=== PATIENT | female | born 1945 | race Caucasian/White ===

== ENCOUNTER 2018-07-02 13:14 | Outpatient (CLI) | payer MEDICARE, OTHER, SELFPAY ==
[2018-07-02 13:49] LABS: HCT 33.1 % (36.0-46.0); HGB 10.8 g/dL (12.0-15.5); Mean Corp. HGB Concentration 32.6 g/dL (32.0-36.0); Mean Corpuscular Hemoglobin 30.4 pg (27.0-33.0); Mean Corpuscular Volume 93.2 fL (80-95); Mean Platelet Volume 8.1 fL (8.0-11.0); Platelet Count 369 x1000/uL (130-400); RBC 3.55 m/cumm (4.00-5.20); RBC Distribution Width 12.8 % (11.7-14.6); White Blood Cell Count 5.67 k/cumm (4.4-10.8)
[2018-07-02 17:03] LABS: ALT 32 U/L (12-78); AST 30 U/L (15-37); Albumin 3.8 g/dL (3.4-5.0); Alkaline Phosphatase 60 U/L (46-116); Anion Gap 12.5 mmol/L (3-11); BUN 36 mg/dL (7-18); Bilirubin, Total 0.2 mg/dL (0.2-1.0); C-Reactive Protein 0.24 mg/dL (0.0-0.3); CO2 24.5 mmol/L (21.0-32.0); CREATININE 1.46 mg/dL (0.55-1.02); Chloride 99 mmol/L (98-107); Estimated GFR 35.22 (mL/min/1.73m2); Glucose 101 mg/dL (70-100); Potassium 4.7 mmol/L (3.5-5.1); Sodium 136 mmol/L (136-145); TSH (W/Ref FT4) 0.94 uIU/mL (0.358-3.74); Total Protein 7.2 g/dL (6.4-8.2)
[2018-07-02 17:23] LABS: HDL Cholesterol 108 mg/dL (40-60); LDL CHOLESTEROL 76 mg/dL (<100); Triglyceride 74 mg/dL (30-150)
[2018-07-02 17:52] LABS: Cholesterol 212 mg/dL (50-200)
== END 2018-07-02 13:34 ==
PROVIDERS: PCP Family Medicine; Visit Provider Family Medicine
DX: R53.83 Other fatigue (principal); R03.0 Elevated blood-pressure reading, without diagnosis of hypertension; R79.89 Other specified abnormal findings of blood chemistry; M19.90 Unspecified osteoarthritis, unspecified site
CPT/HCPCS: 36415; 80053; 80061; 83721; 85027; 84443; 86140

== ENCOUNTER 2018-07-25 16:14 | Outpatient (CLI) | payer MEDICARE, OTHER, SELFPAY ==
[2018-07-25 16:53] LABS: Reticulocyte 1.3 % (0.5-2.4)
[2018-07-25 17:38] LABS: Iron 45 ug/dL (50-175); Total Iron Binding Capacity 337 ug/dL (250-450); Transferrin Sat 13 % (15-50)
[2018-07-25 18:09] LABS: Vitamin B12 620 pg/mL (193-986)
== END 2018-07-25 16:34 ==
PROVIDERS: PCP Family Medicine; Visit Provider Family Medicine
DX: D64.9 Anemia, unspecified (principal); R03.0 Elevated blood-pressure reading, without diagnosis of hypertension
CPT/HCPCS: 36415; 82607; 83540; 83550; 85045

== ENCOUNTER 2018-10-29 11:53 | Outpatient (REF) | payer MEDICARE, OTHER, SELFPAY ==
[2018-10-29 13:02] LABS: HCT 32.8 % (36.0-46.0); HGB 10.7 g/dL (12.0-15.5); Mean Corp. HGB Concentration 32.6 g/dL (32.0-36.0); Mean Corpuscular Hemoglobin 30.2 pg (27.0-33.0); Mean Corpuscular Volume 92.7 fL (80-95); Platelet Count 443 x1000/uL (130-400); RBC 3.54 m/cumm (4.00-5.20); RBC Distribution Width 12.4 % (11.7-14.6)
[2018-10-29 13:07] LABS: BUN 30 mg/dL (7-18); CREATININE 1.41 mg/dL (0.55-1.02); Calcium 9.1 mg/dL (8.5-10.1); Chloride 100 mmol/L (98-107); Estimated GFR 36.56 (mL/min/1.73m2); Glucose 100 mg/dL (70-100); Potassium 4.5 mmol/L (3.5-5.1); Sodium 137 mmol/L (136-145)
== END 2018-10-29 12:13 ==
LOC: NCHCN 11:53
PROVIDERS: PCP Family Medicine; Visit Provider Family Medicine
DX: D64.9 Anemia, unspecified (principal)
CPT/HCPCS: 80048; 85027

== ENCOUNTER 2018-12-08 10:10 | Outpatient (CLI) | payer MEDICARE, OTHER, SELFPAY ==
[2018-12-08 10:50] LABS: Abs Immature Grans 0.01 k/cumm (0.0-0.09); Absolute Basophil Count 0.02 k/cumm (0.0-0.2); Absolute Eosinophil Count 0.09 k/cumm (0.0-0.7); Absolute Monocyte Count 0.76 k/cumm (0.11-0.7); Absolute Neutrophil Count 3.81 k/cumm (1.2-6.7); Basophils % 0.3; Eosinophils % 1.6; HCT 35.3 % (36.0-46.0); HGB 11.8 g/dL (12.0-15.5); Immature Grans % 0.2; Mean Corp. HGB Concentration 33.4 g/dL (32.0-36.0); Mean Corpuscular Hemoglobin 30.3 pg (27.0-33.0); Mean Corpuscular Volume 90.7 fL (80-95); Mean Platelet Volume 8.3 fL (8.0-11.0); Monocytes % 13.1; Neutrophils % 65.8; Platelet Count 378 x1000/uL (130-400); RBC 3.89 m/cumm (4.00-5.20); RBC Distribution Width 12.3 % (11.7-14.6); Reticulocyte 0.8 % (0.5-2.4); White Blood Cell Count 5.79 k/cumm (4.4-10.8)
[2018-12-08 10:53] LABS: Bilirubin Negative (Negative); Blood Negative (Negative); Clarity Clear (Clear); Glucose Negative (Negative); Ketones Negative (Negative); Leukocyte Esterase Negative (Negative); Nitrite Negative (Negative); Urobilinogen 0.2 EU/dL (Up TO 0.2)
[2018-12-08 11:35] LABS: Epithelial Cells Rare HPF (Negative); RBC 0-2 (0-2); WBC Negative HPF (0-5)
[2018-12-08 11:36] LABS: Bacteria Negative HPF (Negative); C & S Indicated? No; Casts Negative LPF (Negative); Crystals Negative HPF (Negative); Mucus Negative (Negative); Other Cells Rare Transitional (Negative)
[2018-12-08 11:54] LABS: ALT 30 U/L (12-78); AST 27 U/L (15-37); Albumin 4.2 g/dL (3.4-5.0); Alkaline Phosphatase 66 U/L (46-116); Anion Gap 9.7 mmol/L (3-11); BUN 29 mg/dL (7-18); Bilirubin, Total 0.3 mg/dL (0.2-1.0); CO2 26.3 mmol/L (21.0-32.0); CREATININE 1.38 mg/dL (0.55-1.02); Calcium 9.2 mg/dL (8.5-10.1); Chloride 99 mmol/L (98-107); Estimated GFR 37.48 (mL/min/1.73m2); Glucose 59 mg/dL (70-100); Potassium 4.5 mmol/L (3.5-5.1); Sodium 135 mmol/L (136-145); Total Protein 7.8 g/dL (6.4-8.2)
[2018-12-08 12:05] LABS: Iron 54 ug/dL (50-175)
== END 2018-12-08 10:30 ==
PROVIDERS: PCP Family Medicine; Visit Provider Family Medicine
DX: D64.9 Anemia, unspecified (principal)
CPT/HCPCS: 36415; 80053; 81003; 81015; 83540; 85025; 85045

== ENCOUNTER 2018-12-11 09:46 | Outpatient (REF) | payer MEDICARE, OTHER, SELFPAY ==
[2018-12-16 13:09] LABS: Helicobacter pylori Ag, Feces Negative (NEGAT)
== END 2018-12-11 10:06 ==
LOC: NCHCN 09:46
PROVIDERS: PCP Family Medicine; Visit Provider Family Medicine
DX: K21.9 Gastro-esophageal reflux disease without esophagitis (principal)
CPT/HCPCS: 87338

== ENCOUNTER 2020-02-29 11:06 | Outpatient (REF) | payer MEDICARE, OTHER, SELFPAY ==
[2020-02-29 21:18] LABS: HCT 33.6 % (36.0-46.0); HGB 10.8 g/dL (11.2-15.7); MCH 30.3 pg (27.0-33.0); MCHC 32.1 % (32.0-36.0); MCV 94.1 fL (80-95); MPV 9.2 fL (8.0-11.0); Platelet Count 386 10^3/uL (130-400); RBC 3.57 10^6/uL (3.93-5.22); RDW 11.9 % (11.7-14.6); WBC 6.58 10^3/uL (4.4-10.8)
== END 2020-02-29 11:26 ==
LOC: NCHCN 11:06
PROVIDERS: PCP Family Medicine; Visit Provider Family Medicine
DX: D64.9 Anemia, unspecified (principal)
CPT/HCPCS: 85027

== ENCOUNTER 2021-07-24 11:25 | Outpatient (CLI) | payer MEDICARE, OTHER, SELFPAY ==
--- NOTE | 2021-07-24 10:45 | DI.RAD_ITS ---
Exam(s) XR HIP RT COMPLETE AP PELVIS EXAM: XR HIP RT COMPLETE AP PELVIS CLINICAL HISTORY: right hip pain. TECHNIQUE: 2D digital imaging was performed. COMPARISON: No exams were available for comparison FINDINGS: There is no evident pelvic or hip fracture. No hip joint narrowing. Additional lateral view the rig ht hip reveals addition bone excrescence at the level of the greater trochanter, as also seen on fron andre view. This has benign appearance probably related to tendon tugging. There is no narrowing of t he hip joint space on either side. There are no osteophytes. Sacroiliac joints appear unremarkable. Disc space narrowing in the visualized lower lumbar spine noted IMPRESSION: DATA REPOSITORY: RADIATION DOSE DELIVERED:
== END 2021-07-24 11:26 | disposition home or self-care (01) ==
LOC: DIORS 11:25
PROVIDERS: PCP Family Medicine; Referring Provider Family Medicine; Visit Provider Student in an Organized Health Care Education/Training Program
DX: M25.551 Pain in right hip (principal); M70.61 Trochanteric bursitis, right hip
CPT/HCPCS: 99203; 73502

== ENCOUNTER 2021-08-04 01:01 | Outpatient (CLI) | payer MEDICARE, OTHER, SELFPAY ==
--- NOTE | 2021-08-04 15:00 | DI.MRI_ITS ---
Exam(s) MR LOWER JOINT RT WO EXAM: MR LOWER JOINT RT WO CLINICAL HISTORY: rt hip pain,m25.551. TECHNIQUE: Multiplanar multisequence MRI was performed. COMPARISON: No exams were available for comparison FINDINGS: There is a tear of the gluteus medius tendon at the insertion onto the greater trochanter. There is fluid adjacent to the tendon in the lateral trochanter.The tendons in the left hip are are otherwise unremarkable. Marrow signal is within normal limits. No evidence of an occult fracture or avascular necrosis. No evidence of a soft tissue mass is seen. There is no significant left hip joint effusi on. There do are findings suggestive of degeneration or tear of the superior labrum. There is a lobulated heterogeneous soft tissue mass in the posterior right pelvis. This appears to r epresent the uterus with fibroids present. Nonemergent pelvic ultrasound may be obtained for further evaluation. IMPRESSION: 1. Gluteus medius muscle tear with associated edema and fluid adjacent to the greater trochanter. 2. Lobulated heterogeneous mass in the posterior right pelvis. This may represent a fibroid uterus. Nonemergent pelvic ultrasound may be obtained for further evaluation. DATA REPOSITORY:
== END 2021-08-04 01:21 ==
PROVIDERS: PCP Family Medicine; Visit Provider Student in an Organized Health Care Education/Training Program
DX: M25.551 Pain in right hip (principal); S76.311A Strain of muscle, fascia and tendon of the posterior muscle group at thigh level, right thigh, initial encounter; X58.XXXA Exposure to other specified factors, initial encounter; R19.09 Other intra-abdominal and pelvic swelling, mass and lump
CPT/HCPCS: 73721

== ENCOUNTER → 2021-08-22 11:11 | Outpatient (BNVA) | payer MEDICARE, OTHER, SELFPAY | PROVIDERS: PCP Family Medicine; Referring Provider Family Medicine; Visit Provider Student in an Organized Health Care Education/Training Program | DX: M70.61 Trochanteric bursitis, right hip (principal); S76.011A Strain of muscle, fascia and tendon of right hip, initial encounter; X58.XXXA Exposure to other specified factors, initial encounter; Z20.822 Contact with and (suspected) exposure to COVID-19 | CPT/HCPCS: 99214 ==

== ENCOUNTER → 2021-09-26 10:54 | Outpatient (BNVA) | payer MEDICARE, OTHER, SELFPAY | PROVIDERS: PCP Family Medicine; Referring Provider Family Medicine; Visit Provider Student in an Organized Health Care Education/Training Program | DX: S76.011A Strain of muscle, fascia and tendon of right hip, initial encounter (principal); X58.XXXA Exposure to other specified factors, initial encounter; M70.61 Trochanteric bursitis, right hip | CPT/HCPCS: 99214 ==

== ENCOUNTER → 2021-10-04 09:48 | Outpatient (BNVA) | payer MEDICARE, OTHER, SELFPAY | PROVIDERS: PCP Family Medicine; Referring Provider Family Medicine; Visit Provider Physician Assistant | DX: M70.61 Trochanteric bursitis, right hip (principal); S76.011A Strain of muscle, fascia and tendon of right hip, initial encounter; X58.XXXA Exposure to other specified factors, initial encounter ==

== ENCOUNTER 2021-10-25 04:14 | Outpatient (CLI) | payer MEDICARE, OTHER, SELFPAY ==
[2021-10-25 10:10] LABS: Source Nasal/Nares
[2021-10-25 14:15] LABS: COVID-19 PCR Negative (Negative)
== END 2021-10-25 04:15 | disposition home or self-care (01) ==
LOC: LBO 04:14
PROVIDERS: PCP Family Medicine; Visit Provider Student in an Organized Health Care Education/Training Program
DX: Z20.822 Contact with and (suspected) exposure to COVID-19 (principal); Z01.818 Encounter for other preprocedural examination
CPT/HCPCS: 87635; U0005

== ENCOUNTER 2021-10-27 06:04 | Day surgery (SDC) | payer MEDICARE, OTHER, SELFPAY ==
[2021-10-27] VITALS (12 sets, daily range): BP systolic 102–170; BP diastolic 67–95; PULSE 56–83; RESP 12–27; TEMP 36.1–36.7; TEMPC 36.3; O2SAT 93–100; BMI 24.7
--- OUTSIDE RECORDS SUMMARY | 2021-10-27 06:06 | XMS_ITS ---
:1945 Author Care Team Providers Name Role Phone DR. ZELALEM VALLEJO Primary Care Provider [phone] DR. ZELALEM VALLEJO Referring Provider [phone] Allergies Code Code System Name Reaction Severity Status Onset [id number] RxNorm Naprosyn Itching Mild Active 09/11/2018 Notes: [employer] Medications Name Status Start Date Stop Date ? ? calcium carbonate Active 09/11/2018 Not available 1 tablet daily by mouth ferrous gluconate 324 mg (37.5 mg iron) tablet Active 0 09/11/2018 Not available Take 1 tablet twice a day by oral route with meals. multivitamin Active ? Not available Take 1 tablet every day Tylenol 325 mg tablet Active ? Not availa ble Take 2 tablets every 6 hours by oral route. Problems Name Status Onset Date Source ? Dyspnea Active 06/11/2018 ? Anemia Active ? ? Aortic Valve Regurgitation Active ? ? Skin Lesion Active ? ? Osteoarthritis Active ? ? Hand Joint Pain Unknown ? ? Osteopenia Active ? ? Fatigue Active ? ? Elevated Blood-pressure Reading without Diagnosis of Active ? ? Hypertension Adult Health Examination Active ? ? Procedures Date Name Performed by ? 06/11/2017 Thumb Tendon Transfer Information not av ailable 09/14/2008 Total Knee Replacement Information not a vailable Notes: right 09/13/2004 Total Knee Replacement Information not a vailable Notes: left 09/11/1983 Bilateral Mastectomy Information not aleida ilable Results Lab Results Date Name Specimen Result Interpretation Description Value Range Status Address ? 09/15/2018 CBC W/ WB Normal Wbc 4.9 4.8-10.8 Final [facility] 10^3/mm^3 10^3/mm^3 [facility] Path[facility]: [address] [place] [address] ? ? WB Low Rbc 3.75 3.90-5.03 Final [facility] 10^6/mm^3 10^6/mm^3 [facility] Pathology: [address] [place] [address] ? ? WB Low Hgb 11.4 g/dL 12.0-15.5 Final [facility] age g/dL Hospital Laboratory & Pathology: [address] [place] [address] ? ? WB Low Hct 34 % 36-46 % Final [facility] Laboratory & Pathology: [address] [place] [address] ? ? WB Normal Mcv 91.7 fL 81.0-99.0 Final [facility] Laboratory & Pathology: [address] [place] [address] ? ? WB Low Mch 30.4 pg 33.0-36.0 Final [facility] Laboratory & Pathology: [address] [place] [address] ? ? WB Normal Mchc 33 g/dL 33-36 g/dL Final [facility] Laboratory & Pathology: [address] [place] [address] ? ? WB Normal Rdw 12.3 % 11.6-14.8 % Final [facility] Laboratory & Pathology: [address] [place] [address] ? ? WB Normal Plt 337 150-400 Final [facility] 10^3/mm^3 10^3/mm^3 Hosp [facility] Laboratory & Pathology: [address] [place] [address] ? ? WB Normal Ne# 2.50 1.20-6.70 Final [facility] 10^3/mm^3 10^3/mm^3 Hosp [facility] Laboratory & Pathology: [address] [place] [address] ? ? WB Normal Ly# 1.21 1.20-3.40 Final [facility] 10^3/mm^3 10^3/mm^3 [facility]osp [facility] Laboratory & Pathology: [address] [place] [address] ? ? WB High Mo# 0.93 0.11-0.70 Final [facility] 10^3/mm^3 10^3/mm^3 [facility]osp [facility] Laboratory & Pathology: [address] [place] [address] ? ? WB Normal Eo# 0.17 0.00-0.70 Final [facility] 10^3/mm^3 10^3/mm^3 Hosp [facility] Laboratory & Pathology: [address] [place] [address] ? ? WB Normal Ba# 0.06 0.00-0.20 Final [facility] 10^3/mm^3 10^3/mm^3 Hosp ital Laboratory & Pathology: [address] [place] [address] ? ? WB Normal Ne% 51 % per 40-74 % per Final [facility] 100 WBC 100 WBC Hospital Laboratory & Pathology: [address] [place] [address] ? ? WB Normal Ly% 25 % per 19-48 % per Final [facility] t[facility] 100 WBC 100 WBC Hospital Laboratory & Pathology: [address] [place] [address] ? ? WB High Mo% 19.1 % per 3.0-10.0 % Final [facility] tt[facility] 100 WBC per 100 WBC [facility]osp [facility] Laboratory & Pathology: [address] [place] [address] ? ? WB Normal Eo% 3.5 % per 1.0-7.0 % Final [facility] age 100 WBC per 100 WBC Hosp ital Laboratory & Pathology: [address] [place] [address] ? ? WB Normal Ba% 1.2 % per 0.0-2.0 % Final [facility] age 100 WBC per 100 WBC Hosp ital Laboratory & Pathology: [address] [place] [address] ? ? WB ? [id number] no ? Final [facility] Laboratory & Pathology: [address] [place] [address] ? ? WB ? Morph? no ? Final [facility] Laboratory & Pathology: [address] [place] [address] 09/15/2018 Urease, ABNORMAL Clotest markedly negative [place] [facility] positive Hospit al [facility], Laboratory Tissue & Pathology: [address] [place] [address] Past Encounters None recorded. Social History Tobacco Smoking Status Never Smoker Vaccine List Vaccine Type influenza, injectable, quadrivalent 03/11/2018 pneumococcal, unspecified formulation 02/12/2017 Plan of Care Reminders Provider Appointments None recorded. ? ? Lab None recorded. ? ? Referral None recorded. ? ? Procedures None recorded. ? ? Surgeries None recorded. ? ? Imaging None recorded. ? ? Vitals Height Weight BMI Blood Pressure 168.91 cm 72.57 kg 25.4 kg/m2 126/60 mm[Hg]
[2021-10-27] MEDS: Lactated Ringers 1,000 ML 100 ML IV (06:51)
--- NOTE | 2021-10-27 07:06 | W.ANESPRE ---
General Info Date of Service Date Performed: 10/27/21 Height: 5 ft 5.75 in Weight: 68.9 kg Body Mass Index (BMI): 24.7 Surgical Procedure: Operation Date: 10/27/21 07:50 Proposed Procedure Side Surgeon p Hip Endoscopy Iliotibial Band Release w/ Trochanteric Bursectomy and Poss. Gluteal Tendon Repair Right Harshil Arroyo MD Meds Allergies and Home Medications Allergies Allergy/AdvReac Type Severity Reaction Status Date / Time ear drops AdvReac Intermediate itching Uncoded 10/27/21 06:18 Home Medication Medication Instructions Recorded acetaminophen 500 mg tablet 500 mg PO Q6H PRN 07/18/21 (Tylenol Extra Strength) cholecalciferol (vitamin D3) 25 50 mcg PO DAILY 07/18/21 mcg (1,000 unit) capsule losartan 25 mg tablet 25 mg PO DAILY 07/18/21 calcium carbonate 200 mg calcium 200 mg PO BID 08/22/21 (500 mg) chewable tablet (Tums) cbd capsule 40 mg PO/SL QID 08/22/21 tramadol 50 mg tablet 25 mg PO DAILY PRN 10/04/21 aspirin 81 mg tablet,delayed 81 mg PO DAILY Prevent blood clot 10/27/21 release 14 days #14 tabs oxycodone 5 mg tablet 5 - 10 mg PO Q4H PRN moderate to 10/27/21 severe pain #12 tabs Current Visit Medications: Current Medications Generic Name Dose Route Start Last Admin Trade Name Freq PRN Reason Stop Dose Admin Ringer's Solution 1,000 mls @ 100 mls/hr 10/27/21 06:00 10/27/21 06:51 IV 10/31/21 23:59 100 mls/hr INFUSION VERITO Administration Cefazolin Sodium/Dextrose 2 gm in 50 mls @ 100 mls/hr 10/27/21 06:00 Ancef Duplex IVPB 10/27/21 23:59 PREOP VERITO IV Miscellaneous Supplies 1 each 10/27/21 06:00 Iv Access IV 10/31/21 23:59 DIRECTED VERITO Sodium Chloride 0 ml 10/27/21 06:00 Normal Saline Flush 10 Ml Syr IV 10/31/21 23:59 PRN PRN Sodium Chloride 0 ml 10/27/21 06:00 Normal Saline 10 Ml Vial IJ 10/31/21 23:59 DIRECTED PRN Sterile Water 0 ml 10/27/21 06:00 Water,Injection,Sterile 10 Ml Vial IJ 10/31/21 23:59 DIRECTED PRN PFSH Active Problems Active Problems: Problem Status Onset Code Exertional shortness of breath R06.02 Chronic kidney disease, unspecified N18.9 GERD (gastroesophageal reflux disease) K21.9 Osteopenia M85.80 Aortic regurgitation I35.1 Trochanteric bursitis, right hip M70.61 Tear of right gluteus medius tendon S76.011A Medical History Medical History (Updated 10/27/21 @ 06:19 by Antonieta Ocampo) Anemia History of breast cancer Normal colonoscopy Pulmonary fibrosis Surgical History Surgical History (Updated 10/27/21 @ 06:20 by Antonieta Ocampo) H/O esophagogastroduodenoscopy History of bilateral mastectomy History of knee replacement Tobacco Smoking/Tobacco Use Status: Never Alcohol Alcohol Intake: current Alcohol intake frequency: 0-2 drinks per day Alcohol type: wine Substance Use Details: CBD pills daily Vital Signs and Lab Results Vital Signs Most Recent Vital Signs in EMR: Most Recent Vital Signs Temp Pulse Resp BP Pulse Ox 36.7 C 78 16 160/76 H 98 10/27/21 06:13 10/27/21 06:13 10/27/21 06:13 10/27/21 06:13 10/27/21 06:13 Lab Results Blood Type / Crossmatch: No Data to Display Complete Blood Count: No Data to Display Complete Metabolic Panel: No Data to Display Liver Function Panel: No Data to Display Coagulation Panel: No Data to Display Cardiac Panel: No Data to Display Arterial Blood Gas: No Data to Display Venous Blood Gas: No Data to Display Pancreas Panel: No Data to Display Thyroid Panel: No Data to Display Infectious Disease: Coronavirus (COVID-19)(PCR) Negative (Negative) 10/25/21 09:51 Coronavirus 2019 Source Nasal/Nares 10/25/21 09:51 Blood Cultures: No Data to Display Toxicology Panel: No Data to Display Anesthesia Assessment and Plan Anesthesia History Personal History: PONV Family History: No Family History of Anesthesia Complications Exercise Tolerance Exercise Tolerance: Metabolic Equivalents>4 Pertinent Negatives Pertinent Negatives: No Symptoms of GERD, No Major Cardiovascular Symptoms or Complaints, No Major Pulmonary Symptoms or Complaints and No History of CVA/TIA Cardiac & Pulmonary Exam Cardiac Exam: Normal S1/S2 Heart Sounds Pulmonary Exam: Clear Bilateral Breath Sounds Implantable Cardiac Device Does patient have a Pacemaker or an ICD?: No Airway Exam Known Difficult Airway: No Mallampati Class: 2 Mouth Opening: Normal (> 3cm) Thyromental Distance: Greater than 3 cm Neck Range of Motion: Full ROM Neck Circumference: Normal Teeth Condition: Normal Dentition ASA Classification ASA Score: ASA 2 Emergency Case?: No NPO Status NPO Status: NPO Clears >2 hours, Solids >8 hours Anesthesia Plan Resuscitation Status: Full Code Anesthesia Technique: Spinal Anesthesia Airway Planned: Natural Airway Monitors Used: Standard Monitors
[2021-10-27] MEDS: ceFAZolin 2 GM/50 ML BAG IVPB (07:41)
[2021-10-27] MEDS: Bupivacaine 0.5% Pres-Free W/EPI 10 ML VIAL (09:18)
--- NOTE | 2021-10-27 09:31 | DI.RAD_ITS ---
Exam(s) XR HIP RT IN OR EXAM: XR HIP RT IN OR CLINICAL HISTORY: trochanteric bursitis right hip. TECHNIQUE: 2D and realtime digital imaging was performed. COMPARISON: No exams were available for comparison FINDINGS: Fluoro time 13.9 seconds Please see procedure note for details. RADIATION DOSE DELIVERED: mariola Munson=1.75 mGy
--- NOTE | 2021-10-27 09:40 | W.PM.DSUDISC ---
Discharge Plan Disposition Patient Disposition: HOME Condition: Stable Discharge Details Reason For Visit: Right hip surgery Attending Provider: Harshil Arroyo Primary Care Provider: Shira Kohler Home Meds and New Rx's Prescriptions: New aspirin 81 mg tablet,delayed release (DR/EC) 81 mg PO DAILY 14 Days Qty: 14 0RF oxycodone 5 mg tablet 5 - 10 mg PO Q4H MDD 30 mg PRN (Reason: moderate to severe pain) Qty: 12 0RF Continued tramadol 50 mg tablet 25 mg PO DAILY PRN acetaminophen [Tylenol Extra Strength] 500 mg tablet 500 mg PO Q6H PRN losartan 25 mg tablet 25 mg PO DAILY cholecalciferol (vitamin D3) 25 mcg (1,000 unit) capsule 50 mcg PO DAILY cbd capsule 40 mg 40 mg PO/SL QID calcium carbonate [Tums] 200 mg calcium (500 mg) tablet,chewable 200 mg PO BID Discharge Instructions Additional Instructions: Surgery: Right hip endoscopy with iliotibial band release, trochanteric bursectomy, and gluteal tendon repair Activity: Weightbearing as tolerated with a walker for 8 weeks. Avoid any single?leg stance. Do not adduct right lower extremity past the midline or actively abduct. After 8 weeks, gradually wean from the walker and gently increase active range of motion to full. Pelvis stability and hip strengthening after 3 months. A physical therapy prescription will be sent electronically to begin in about 3 weeks. Prescriptions: Aspirin 81 mg take 1 daily to prevent a blood clot for 2 weeks Oxycodone 5 mg take 1-2 every 4-6 hours as needed for severe pain You may use [id number] Tylenol (acetaminophen) as needed for mild pain. These pain medications may be taken all at once or in different combinations as needed. Also, recommend Colace (docusate) as a stool softener as surgery and pain medicine cause constipation. You may try [id number]-wvafluf diphenhydramine (Benadryl) 25-50 mg nightly as a sleep aid Dressings: Leave dressing in place for 3 days. May then remove and leave open to air or cover incisions with Band-Aids. May shower after 5 days. Follow-up: 10-[address] Arroyo Let us know right away if you develop any redness, drainage, fevers, chest pain, or trouble breathing. Do not drink alcohol or drive for at least 24 hours after anesthesia. Please call the office during business hours with any questions or concerns. Stand Alone Forms: Anesthesia Discharge Inst., Ariana Waters ([facility]) Referrals: Harshil Arroyo MD [ [facility] STAFF PHYSICIAN] - Discharge Orders Discharge Orders: Discharge Order (Routine); Ordered 10/27/21 Ordered By: Harshil Arroyo DS: Diagnosis Discharge Diagnosis (1) Tear of right gluteus medius tendon: Status: Acute (2) Trochanteric bursitis, right hip: Status: Acute
--- NOTE | 2021-10-27 09:51 | W.PM.OP ---
Operative Note Operative Note DATE OF PROCEDURE: 10/27/21 PRE-OP DIAGNOSIS: Right 1. Iliotibial band syndrome 2. Trochanteric bursitis 3. Gluteal tendon tear POST-OP DIAGNOSIS: same PROCEDURE: Right hip endoscopic iliotibial band release (CPT# 04304), trochanteric bursectomy (CPT# 08964), and gluteal tendon repair (CPT# 20210) SURGEON: Harshil Arroyo AEROSPACE PHYSIOLOGICAL TECHNICIAN: Shannon Cook ANESTHESIA TYPE: Local By Surgeon and General LMA/ETT Refer to Anesthesia Record ESTIMATED BLOOD LOSS: 10 COMPLICATIONS: None Patient was transported to: PACU Patient's condition: stable Implants: Arthrex 1x 5.5mm SwiveLock anchor Indications: Please see complete medical record for details. Findings: Thickened iliotibial band. Inflamed trochanteric bursitis. 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 Procedure Description: In the operating room, general anesthesia was induced. The patient was positioned supine on the [place] operating room table. All bony prominences were well-padded. Preoperative antibiotics were administered. The hip was prepped and draped in the usual sterile fashion. The correct patient, procedure, and side of the procedure were all verified prior to incision. 30 cc of 0.5% bupivacaine containing epinephrine was infiltrated about the subcutaneous tissues for the planned anterior lateral and distal anterolateral portals as well as deeply over the greater trochanter. A knife was used to incise the skin for the anterior lateral and distal anterolateral portals followed by blunt dissection subcutaneously. Under fluoroscopic guidance, a switching stick and arthroscope were inserted localizing the iliotibial band over the greater trochanter. Blunt dissection and the mechanical shaver were used to resect fat and overlying tissue about the center of the iliotibial band and carefully expose the anterior and posterior margins. Once there was adequate exposure of the IT band, the greater trochanter was again localized under fluoroscopic guidance with a spinal needle inserted through the skin down to bone. This central area was marked using the radiofrequency ablator. A [employer] blade was brought in and used to create a 2 cm longitudinal incision in line with the IT band fibers as well as extending it in a cruciate fashion with 2 cm incisions anteriorly and posteriorly. The radiofrequency ablator was used to achieve hemostasis. The mechanical shaver was then used to debride the IT band released edges exposing the trochanteric bursa. The mechanical shaver was then used to excise the trochanteric bursa taking care to protect musculature about the margins of the greater trochanter as well as neurovascular structures especially posteriorly. There was excellent visualization of the vastus lateralis as well as gluteus medius confirming appropriate bursa excision. The hip was brought through range of motion including internal and external rotation and there was no impinging iliotibial band tissue or remaining pathologic bursa. The viewing and working portals were switched and appropriate IT band release, trochanteric bursa excision, and hemostasis confirmed. There was an obvious large tear of the gluteal tendons. There was a small remnant posteriorly of the gluteus medius with the majority of the central medius retracted and atrophied with poor tissue quality. The anterior medius and minimus were completely torn off the trochanter as well, but not retracted and the tissue here was good quality. The greater trochanter had obvious chronic bony changes and was essentially balled with irregular bone bumps from the chronic tendon tears except for the posterior proximal thin remnant medius attachment. Significant time was spent preparing the bone and tendon to optimize healing. The shaver, round bur, and various rasps were used to smooth the chronic bony changes about the tuberosity as well as prepare the bone surface for bleeding and healing. An additional central portal was made to elevate and mobilize the tendon for best tendon bone preparation while viewing and working from the initial 2 portals. The tendon was debrided lightly anteriorly and posteriorly confirming appropriate tissue here and more debridement centrally to ensure worthwhile repair at this area. With the hip in neutral position the anterior tendon could be well opposed over the prepared trochanteric footprint. The posterior intact tendon was still reasonably attached. The central medius had just enough excursion towards the proximal trochanter for apposition but did not have sufficient tendon length for compressive repair. Using fluoroscopic guidance a central SwiveLock anchor was planned in the undersized punch used with the bone quality good. The self retrieving suture passer was used to pass an inverted horizontal mattress FiberTape stitch in the central part of the tear repair anteriorly proximally. An additional suture tape FiberLink in cinch mode was passed in this central area of the repair additionally securing this most repairable tissue. Last FiberLink was placed approximately centrally in the more tenuous repair for reapproximation. The sutures were loaded on a 5.5 mm SwiveLock anchor, which was successfully deployed down to bone with appropriate tension on all repair sutures. Hip was taken through internal and external rotation with excellent compressive tissue repair anteriorly and anteriorly proximally. The central most chronic part of the tear was reasonably opposed to the trochanter. The most posterior part of the tendon remained reduced and attached. No additional repair was necessary. Suction was used to remove fluid from the endoscopic space. The portals were closed using 3-0 Monocryl in a buried fashion. Steri-Strips were applied over the incisions followed by Xeroform, 4 x 4 gauze, an ABD pad, and secured with tape. The patient awoke from anesthesia without complication and was transferred to the recovery room in a stable condition.
[2021-10-27] MEDS: EPINEPHrine 30 MG/30 ML VIAL (09:54)
[2021-10-27] MEDS: HYDROmorphone 2 MG/ML VIAL IVP (10:45)
--- NOTE | 2021-10-27 11:51 | W.ANESPOSTOP ---
Postoperative Evaluation Date, Time and Location Date Performed: 10/27/21 Time Performed: 11:51 Patient Location: Day Surgery Unit Vital Signs Most Recent Imported Vital Signs: Most Recent Vital Signs Temp Pulse Resp BP Pulse Ox 36.6 C 75 18 149/70 H 98 10/27/21 11:39 10/27/21 11:39 10/27/21 11:39 10/27/21 11:39 10/27/21 11:39 Pain Score Most Recent Pain Score: Most Recent Pain Score Pain Level 3 10/27/21 11:39 Assessment Mental Status: Awake (Alert & Oriented to Patient Baseline) Airway and Respiratory Function: Patent airway with normal (patient baseline) respiratory exam Cardiovascular Function: Hemodynamically Stable Hydration Status: Adequately Hydrated Nausea & Vomiting: No Nausea or Vomiting Pain: Pain is tolerable per patient Peripheral Nerve Block: Patient did not receive a nerve block
[2021-10-27] MEDS: oxyCODONE 5 MG TAB PO (12:12)
--- NOTE | 2021-10-27 13:41 | W.ANESPOSTOP ---
Postoperative Evaluation Date, Time and Location Date Performed: 10/27/21 Time Performed: 13:41 Patient Location: Day Surgery Unit Vital Signs Most Recent Imported Vital Signs: Most Recent Vital Signs Temp Pulse Resp BP Pulse Ox 36.6 C 75 18 149/70 H 98 10/27/21 11:39 10/27/21 11:39 10/27/21 11:39 10/27/21 11:39 10/27/21 11:39 Most Recent Vital Signs Temp Pulse Resp BP Pulse Ox 36.6 C 75 18 149/70 H 98 10/27/21 11:39 10/27/21 11:39 10/27/21 11:39 10/27/21 11:39 10/27/21 11:39 Most Recent Manually Entered Vital Signs: Adult Blood Pressure: 130/93 Heart Rate: 56 Respirations: 12 Oxygen Saturation (%): 93 Temperature (C): 36.3 C Pain Score (0-10 Scale): 0 Pain Score Most Recent Pain Score: Most Recent Pain Score Pain Level 3 10/27/21 11:39 Assessment Mental Status: Awake (Alert & Oriented to Patient Baseline) Airway and Respiratory Function: Patent airway with normal (patient baseline) respiratory exam Cardiovascular Function: Hemodynamically Stable Hydration Status: Adequately Hydrated Nausea & Vomiting: No Nausea or Vomiting Pain: Pt. Denies Any Pain Peripheral Nerve Block: Patient did not receive a nerve block
== END 2021-10-27 13:53 | disposition home or self-care (01) ==
PROVIDERS: PCP Family Medicine; Visit Provider Student in an Organized Health Care Education/Training Program
PROC: (CPT 29863; principal; 2021-10-27 07:30)
DX: M70.61 Trochanteric bursitis, right hip (principal); M76.31 Iliotibial band syndrome, right leg; S76.011A Strain of muscle, fascia and tendon of right hip, initial encounter; K21.9 Gastro-esophageal reflux disease without esophagitis; N18.9 Chronic kidney disease, unspecified; I35.0 Nonrheumatic aortic (valve) stenosis; X58.XXXA Exposure to other specified factors, initial encounter
CPT/HCPCS: 27062; 27305; 27006; 73501; J0690; J1100; J2405

== ENCOUNTER → 2021-11-08 10:15 | Outpatient (BNVA) | payer MEDICARE, OTHER, SELFPAY | PROVIDERS: PCP Family Medicine; Referring Provider Family Medicine; Visit Provider Physician Assistant | DX: X58.XXXA Exposure to other specified factors, initial encounter (principal); S76.011A Strain of muscle, fascia and tendon of right hip, initial encounter ==

== ENCOUNTER 2021-12-07 04:06 | Outpatient (CLI) | payer MEDICARE, OTHER, SELFPAY ==
[2021-12-07 15:08] LABS: Anion Gap 7.7 mmol/L (3-11); BUN 34 mg/dL (7-18); CO2 28.3 mmol/L (21.0-32.0); CREATININE 1.5 mg/dL (0.55-1.02); Calcium 9.6 mg/dL (8.5-10.1); Chloride 95 mmol/L (98-107); Estimated GFR 33.76 (mL/min/1.73m2); Glucose 117 mg/dL (74-106); Sodium 131 mmol/L (136-145)
== END 2021-12-07 04:07 | disposition home or self-care (01) ==
LOC: LBO 04:06
PROVIDERS: PCP Family Medicine; Visit Provider Internal Medicine Nephrology
DX: N18.32 Chronic kidney disease, stage 3b (principal)
CPT/HCPCS: 36415; 80048

== ENCOUNTER → 2021-12-20 09:46 | Outpatient (BNVA) | payer MEDICARE, OTHER, SELFPAY | PROVIDERS: PCP Family Medicine; Referring Provider Family Medicine; Visit Provider Student in an Organized Health Care Education/Training Program | DX: X58.XXXA Exposure to other specified factors, initial encounter (principal); S76.011A Strain of muscle, fascia and tendon of right hip, initial encounter; M70.61 Trochanteric bursitis, right hip ==

== ENCOUNTER → 2022-02-14 09:22 | Outpatient (BNVA) | payer MEDICARE, OTHER, SELFPAY | PROVIDERS: PCP Family Medicine; Referring Provider Family Medicine; Visit Provider Student in an Organized Health Care Education/Training Program | DX: X58.XXXA Exposure to other specified factors, initial encounter (principal); S76.011A Strain of muscle, fascia and tendon of right hip, initial encounter; M70.61 Trochanteric bursitis, right hip | CPT/HCPCS: 99213 ==

== ENCOUNTER 2022-03-30 01:56 | Outpatient (CLI) | payer MEDICARE, OTHER, SELFPAY ==
[2022-03-30 11:49] LABS: Abs Immature Grans 0.02 10^3/uL (0.0-0.06); Absolute Basophil Count 0.05 10^3/uL (0.0-0.2); Absolute Eosinophil Count 0.15 10^3/uL (0.0-0.7); Absolute Monocyte Count 1.09 10^3/uL (0.1-0.8); Absolute Neutrophil Count 3.97 10^3/uL (1.2-6.7); Basophils % 0.8; Eosinophils % 2.3; HCT 37.2 % (36.0-46.0); HGB 12.1 g/dL (11.2-15.7); Immature Grans % 0.3; Lymphocytes % 18.5; MCH 30.6 pg (27.0-33.0); MCHC 32.5 % (32.0-36.0); MCV 94 fL (80-95); MPV 8.2 fL (8.0-11.0); Monocytes % 16.8; Neutrophils % 61.3; Platelet Count 320 10^3/uL (130-400); RBC 3.95 10^6/uL (3.93-5.22); RDW 11.9 % (11.7-14.6); RDW-SD 41.6 fL; WBC 6.48 10^3/uL (4.4-10.8)
[2022-03-30 12:34] LABS: Anion Gap 8.7 mmol/L (3-11); BUN 30 mg/dL (7-18); CO2 25.3 mmol/L (21.0-32.0); CREATININE 1.2 mg/dL (0.55-1.02); Calcium 9.4 mg/dL (8.5-10.1); Chloride 94 mmol/L (98-107); Estimated GFR 46.91 (mL/min/1.73m2); Glucose 95 mg/dL (74-106); Potassium 4.5 mmol/L (3.5-5.1); Sodium 128 mmol/L (136-145)
[2022-03-30 12:36] LABS: PROTEIN 16.7 mg/dL (0.0-11.9)
[2022-03-30 12:38] LABS: COMMENT (LAB VIEW ONLY) 47.54 mg/dL
[2022-03-30 12:40] LABS: Microalb ug/mg Crea 157.1 ug/mg Cr
[2022-03-30 22:31] LABS: Parathyroid Hormone,Intact 58 pg/mL (19-88)
== END 2022-03-30 01:57 | disposition home or self-care (01) ==
LOC: LBO 01:56
PROVIDERS: PCP Family Medicine; Visit Provider Internal Medicine Nephrology
DX: N18.32 Chronic kidney disease, stage 3b (principal); R80.9 Proteinuria, unspecified; E87.1 Hypo-osmolality and hyponatremia
CPT/HCPCS: 36415; 80048; 82533; 82043; 82565; 82570; 83970; 84156; 85025

== ENCOUNTER 2023-02-18 14:42 | Outpatient (CLI) | payer MEDICARE, SELFPAY ==
[2023-02-18 11:49] LABS: Abs Immature Grans 0.02 10^3/uL (0.0-0.06); Absolute Basophil Count 0.03 10^3/uL (0.0-0.2); Absolute Eosinophil Count 0.09 10^3/uL (0.0-0.7); Absolute Lymphocyte Count 1.06 10^3/uL (1.2-3.4); Absolute Monocyte Count 0.83 10^3/uL (0.1-0.8); Basophils % 0.5; Eosinophils % 1.5; HCT 37.2 % (36.0-46.0); HGB 12.7 g/dL (11.2-15.7); Immature Grans % 0.3; Lymphocytes % 18.2; MCH 31.4 pg (27.0-33.0); MCHC 34.1 % (32.0-36.0); MCV 92 fL (80-95); MPV 8.3 fL (8.0-11.0); Monocytes % 14.2; Neutrophils % 65.3; Platelet Count 343 10^3/uL (130-400); RBC 4.05 10^6/uL (3.93-5.22); RDW 12.1 % (11.7-14.6); RDW-SD 41.1 fL; WBC 5.83 10^3/uL (4.4-10.8)
[2023-02-18 12:51] LABS: Albumin 4.2 g/dL (3.4-5.0); Anion Gap 10.2 mmol/L (3-11); BUN 38 mg/dL (7-18); CO2 24.8 mmol/L (21.0-32.0); CREATININE 1.8 mg/dL (0.55-1.02); Calcium 9.9 mg/dL (8.5-10.1); Chloride 96 mmol/L (98-107); Estimated GFR 28.66 (mL/min/1.73m2); Glucose 103 mg/dL (74-106); Potassium 4.8 mmol/L (3.5-5.1); Sodium 131 mmol/L (136-145)
[2023-02-18 13:28] LABS: COMMENT (LAB VIEW ONLY) 181.01 mg/dL; PROTEIN 34.6 mg/dL; Prot/Crea Ur Ratio 0.19
[2023-02-18 13:38] LABS: COMMENT (LAB VIEW ONLY) 182.37 mg/dL
[2023-02-18 13:40] LABS: Microalb ug/mg Crea 94.3 ug/mg Cr
[2023-02-18 13:49] LABS: Vitamin D 25 Total 54.9 ng/mL (30-100)
[2023-02-18 22:29] LABS: Osmolality, Urine 649 mOsm/kg (150-1150)
[2023-02-18 22:58] LABS: Osmolality Serum 281 mOsm/kg (275-295)
[2023-02-18 23:09] LABS: Parathyroid Hormone,Intact 84 pg/mL (19-88)
== END 2023-02-18 14:43 | disposition home or self-care (01) ==
LOC: LBO 14:43
PROVIDERS: PCP Family Medicine; Visit Provider Internal Medicine Nephrology
DX: N18.32 Chronic kidney disease, stage 3b (principal); E87.1 Hypo-osmolality and hyponatremia; R79.89 Other specified abnormal findings of blood chemistry; D64.9 Anemia, unspecified; Z79.899 Other long term (current) drug therapy
CPT/HCPCS: 36415; 80048; 82306; 83935; 82040; 82043; 82565; 82570; 83930; 83970; 84156; 85025

== ENCOUNTER 2023-04-23 14:00 | Outpatient (REF) | payer MEDICARE, SELFPAY ==
[2023-04-23 16:03] LABS: HCT 39.4 % (36.0-46.0); MCV 94 fL (80-95); MPV 9.2 fL (8.0-11.0); Platelet Count 346 10^3/uL (130-400); RDW 12.8 % (11.7-14.6); WBC 4.28 10^3/uL (4.4-10.8)
[2023-04-23 16:30] LABS: ALT 33 U/L (14-59); AST 25 U/L (15-37); Albumin 4.1 g/dL (3.4-5.0); Alkaline Phosphatase 72 U/L (46-116); Anion Gap 4.7 mmol/L (3-11); BUN 32 mg/dL (7-18); Bilirubin, Total 0.4 mg/dL (0.2-1.0); CO2 27.3 mmol/L (21.0-32.0); CREATININE 1.5 mg/dL (0.55-1.02); Calcium 9.7 mg/dL (8.5-10.1); Calculated LDL 115 mg/dL (<100); Chloride 101 mmol/L (98-107); Cholesterol 257 mg/dL (<200); Estimated GFR 35.67 (mL/min/1.73m2); Glucose 103 mg/dL (74-106); HDL Cholesterol 132 mg/dL (40-60); Potassium 5.3 mmol/L (3.5-5.1); Sodium 133 mmol/L (136-145); Total Protein 7.7 g/dL (6.4-8.2); Triglyceride 54 mg/dL (<150)
[2023-04-23 16:51] LABS: Vitamin D 25 Total 50.5 ng/mL (30-100)
== END 2023-04-23 14:01 | disposition home or self-care (01) ==
LOC: NCHCN 14:00
PROVIDERS: PCP Family Medicine; Visit Provider Family Medicine
DX: I10 Essential (primary) hypertension (principal); D64.9 Anemia, unspecified; N18.9 Chronic kidney disease, unspecified; M19.90 Unspecified osteoarthritis, unspecified site
CPT/HCPCS: 80053; 80061; 82306; 85027

== ENCOUNTER 2023-06-13 03:54 | Outpatient (CLI) | payer MEDICARE, SELFPAY ==
[2023-06-13 11:05] LABS: Abs Immature Grans 0.04 10^3/uL (0.0-0.06); Absolute Basophil Count 0.04 10^3/uL (0.0-0.2); Absolute Eosinophil Count 0.16 10^3/uL (0.0-0.7); Absolute Lymphocyte Count 0.97 10^3/uL (1.2-3.4); Absolute Monocyte Count 0.73 10^3/uL (0.1-0.8); Absolute Neutrophil Count 4.34 10^3/uL (1.2-6.7); Basophils % 0.6; Eosinophils % 2.5; HGB 12.7 g/dL (11.2-15.7); Immature Grans % 0.6; Lymphocytes % 15.4; MCH 31.3 pg (27.0-33.0); MCHC 33.4 % (32.0-36.0); MCV 94 fL (80-95); MPV 8.5 fL (8.0-11.0); Monocytes % 11.6; Neutrophils % 69.3; Platelet Count 366 10^3/uL (130-400); RBC 4.06 10^6/uL (3.93-5.22); RDW 12.5 % (11.7-14.6); RDW-SD 43.5 fL; WBC 6.28 10^3/uL (4.4-10.8)
[2023-06-13 11:34] LABS: Anion Gap 8.6 mmol/L (3-11); BUN 42 mg/dL (7-18); CO2 26.4 mmol/L (21.0-32.0); CREATININE 1.6 mg/dL (0.55-1.02); Calcium 9.4 mg/dL (8.5-10.1); Chloride 100 mmol/L (98-107); Estimated GFR 33.01 (mL/min/1.73m2); Glucose 94 mg/dL (74-106); Potassium 4.6 mmol/L (3.5-5.1); Sodium 135 mmol/L (136-145)
[2023-06-13 11:39] LABS: POTASSIUM,URINE RANDOM 64 mmol/L; Sodium, Urine 42 mmol/L
[2023-06-13 11:43] LABS: PROTEIN 42.6 mg/dL; Prot/Crea Ur Ratio 0.24
[2023-06-13 11:51] LABS: COMMENT (LAB VIEW ONLY) 172.08 mg/dL
[2023-06-13 11:52] LABS: Microalb ug/mg Crea 112.1 ug/mg Cr
[2023-06-13 11:59] LABS: Vitamin D 25 Total 51.7 ng/mL (30-100)
[2023-06-14 18:33] LABS: Osmolality, Urine 617 mOsm/kg (150-1150)
[2023-06-14 19:02] LABS: Osmolality Serum 290 mOsm/kg (275-295)
[2023-06-14 19:26] LABS: Parathyroid Hormone,Intact 123 pg/mL (19-88)
== END 2023-06-13 03:55 | disposition home or self-care (01) ==
LOC: LBO 03:54
PROVIDERS: PCP Family Medicine; Visit Provider Internal Medicine Nephrology
DX: N18.32 Chronic kidney disease, stage 3b (principal); E87.1 Hypo-osmolality and hyponatremia
CPT/HCPCS: 36415; 80048; 82306; 83935; 82040; 82043; 82436; 82565; 82570; 83930; 83970; 84133; 84156; 84300; 85025

== ENCOUNTER 2024-12-22 11:11 | Outpatient (CLI) | payer MEDICARE, SELFPAY ==
--- NOTE | 2024-12-22 09:30 | DI.RAD_ITS ---
Exam(s) XR HIP RT AP LAT ONLY EXAM: XR HIP RT AP LAT ONLY CLINICAL HISTORY: RIGHT HIP PAIN. TECHNIQUE: 2D digital imaging was performed of the right hip. Two images were obtained. AP and lateral hip views were obtained. COMPARISON: CR XR HIP RT COMPLETE AP PELVIS from 07/24/2021 XA XR HIP RT IN OR from 10/27/2021 FINDINGS: BONES: No acute fracture is present. No bony destructive lesion is seen. JOINTS: No dislocation present. Enthesophytes are seen at the greater trochanter. The right hip joint is well maintained. SOFT TISSUE: Normal. IMPRESSION: No acute abnormalities are present. DATA REPOSITORY: RADIATION DOSE DELIVERED:
== END 2024-12-22 11:12 | disposition home or self-care (01) ==
LOC: DIORS 11:11
PROVIDERS: PCP Family Medicine; Referring Provider Family Medicine; Visit Provider Student in an Organized Health Care Education/Training Program
DX: S76.011A Strain of muscle, fascia and tendon of right hip, initial encounter (principal); M25.551 Pain in right hip; M46.1 Sacroiliitis, not elsewhere classified; M70.61 Trochanteric bursitis, right hip; X58.XXXA Exposure to other specified factors, initial encounter
CPT/HCPCS: 99213; 73502

== ENCOUNTER → 2025-02-02 09:22 | Outpatient (BNVA) | payer MEDICARE, SELFPAY | PROVIDERS: PCP Family Medicine; Referring Provider Family Medicine; Visit Provider Podiatrist | DX: M21.611 Bunion of right foot (principal); M21.612 Bunion of left foot; M20.41 Other hammer toe(s) (acquired), right foot; M20.42 Other hammer toe(s) (acquired), left foot; M79.672 Pain in left foot; L84 Corns and callosities | CPT/HCPCS: 99213 ==

== ENCOUNTER 2025-02-16 10:57 | Outpatient (CLI) | payer MEDICARE, SELFPAY ==
--- NOTE | 2025-02-16 09:15 | DI.RAD_ITS ---
Exam(s) XR SHOULDER RT COMPLETE 2+V EXAM: XR SHOULDER RT COMPLETE 2+V CLINICAL HISTORY: RIGHT SHOULDER PAIN. TECHNIQUE: 2D digital imaging was performed of the right shoulder. Two images were obtained. Grashey and axillary views were obtained. COMPARISON: No exams were available for comparison FINDINGS: BONES: No acute fracture is present. No bony destructive lesion is seen. There is a small spur at the undersurface of the acromion laterally. JOINTS: No dislocation present. There are mild degenerative changes seen at both the acromioclavicular and glenohumeral joints. SOFT TISSUE: Soft tissue calcifications are seen anterior to the humeral head. IMPRESSION: Degenerative changes seen in the right shoulder as described above. DATA REPOSITORY: RADIATION DOSE DELIVERED:
== END 2025-02-16 10:58 | disposition home or self-care (01) ==
LOC: DIORS 10:57
PROVIDERS: PCP Family Medicine; Referring Provider Family Medicine; Visit Provider Student in an Organized Health Care Education/Training Program
DX: M19.011 Primary osteoarthritis, right shoulder (principal); M25.511 Pain in right shoulder
CPT/HCPCS: 99213; 73030

== ENCOUNTER 2025-04-08 07:55 | Outpatient (CLI) | payer MEDICARE, SELFPAY ==
--- NOTE | 2025-04-08 06:00 | DI.RAD_ITS ---
Exam(s) XR PAIN CLINIC SACRIOILIAC 2V EXAM: XR PAIN CLINIC SACRIOILIAC 2V CLINICAL HISTORY: DX: Sacroiliac Dysfunction TECHNIQUE: 2D and realtime digital imaging was performed. CONTRAST MATERIAL: Refer to procedure report. COMPARISON: No exams were available for comparison FINDINGS: Fluoroscopy was provided for Dr. Alvarenga during the performance of a right sacroiliac joint injection. Please refer to the procedure report for complete details. Ka,r=3.8 mGy IMPRESSION: RADIATION DOSE DELIVERED: 0.0 0.0 0
[2025-04-08 08:02] VITALS: BP 151/77; PULSE 83; RESP 20; TEMP 36.9; O2SAT 99
[2025-04-08 08:29] VITALS: PULSE 89; RESP 25; O2SAT 98
[2025-04-08 08:30] VITALS: BP 194/95; PULSE 87; PULSE 90; RESP 26; O2SAT 99
[2025-04-08 08:31] VITALS: PULSE 89; RESP 19; O2SAT 99
[2025-04-08 08:32] VITALS: BP 195/101; PULSE 87; PULSE 88; RESP 18; O2SAT 100
--- NOTE | 2025-04-08 08:41 | PDOC.PAIN_ITS ---
Date of service: 04/08/25 Time of Service: 08:41 Pain Managment Procedure Note Procedure Note Procedure Note: PROCEDURE NOTE BILATERAL INTRA-ARTICULAR SACROILIAC JOINT INJECTION Date of Service: April 08, 2025 Patient: Kassie Espinal Provider: Nelson Alvarenga DO, MPH COMMENTS: I previously evaluated the patient in the office and their symptoms in relation to the sacroiliac joint pain have remained the same. Pre-operative diagnosis: Sacroiliac joint dysfunction ICD-10 M53.3 Post-operative diagnosis: Same Pre-procedure pain: VAS= 4/10 Kassie Espinal has been referred to our [facility] for a Right intra-articular Sacroiliac joint injection. Kassie was interviewed and the medical record reviewed. There were no medical, pharmacologic, radiographic or other structural contraindications to attempting a fluoroscopically-guided, contrast-enhanced, intra-articular Sacroiliac joint injection. The risks, benefits, and potential side effects of this procedure were reviewed with the patient. Questions and concerns were addressed. After it was clear that Kassie was fully informed about the procedure, the printed consent form was signed by the patient and myself. Kassie was placed in the prone position on the fluoroscopy table and an automated blood pressure cuff, 3 lead EKG, and pulse oximeter were applied. The skin entry point for approaching the Right sacroiliac joint was identified under the most advantageous fluoroscopic view and marked. Following thorough Chlorhexadine preparation of the skin and draping with sterile surgical drapes, 2 mls of 1% lidocaine was infiltrated into the skin at the entry point and the surrounding subcutaneous tissues. Next, a 3.5 22G spinal needle was placed under fl uoroscopic guidance into the Right sacroiliac joint. Intra-articular placement was confirmed by a clear arthrogram resulting from the injection of 0.25ml of Omnipaque-240. Next, 2 ml of Depo- Medrol 40 mg/ml was injected intra- articularly with an initial reproduction of a significant component of the usual pain. This was followed with 1 ml of 1% Lidocaine. The needle was then removed without difficulty. (49 ml of Omnipaque-240 was wasted). Kassie's vital signs were stable throughout the procedure and were as recorded in nursing records. Follow up plans and appointments were discussed with Kassie. Post procedure instructions were given as documented in nursing records. Having met discharge criteria, Kassie was [facility] from the [facility]. COMMENTS: Post-procedure pain: VAS= 0/10. If the patient receives at least 50% improvement in pain and/or function for at least 3 months, this procedure can be repeated if needed. I personally performed this entire procedure. NELSON ALVARENGA DO, MPH ABPMR-subspecialty board certification in Pain Medicine [facility] Coding Conscious Sedation used for procedure: No CPT Codes: SI Joint Inj; incl Fluoro - 39774 ([id number] ~G) Additional Codes: Date of Service (16826) Diagnoses: Sacroiliac joint dysfunction
[2025-04-08 08:43] VITALS: BP 178/73; PULSE 83
[2025-04-08] MEDS: Omnipaque 240 MG/ML 50 ML BTL IJ (08:49)
[2025-04-08] MEDS: Nerve Block Tray 1 EACH MC (08:50)
[2025-04-08] MEDS: methylPREDNISolone ACETATE 40 MG/ML VIAL IJ (08:50)
== END 2025-04-08 07:56 | disposition home or self-care (01) ==
LOC: PC 07:56
PROVIDERS: PCP Family Medicine; Visit Provider Preventive Medicine Occupational Medicine
DX: M54.50 Low back pain, unspecified (principal); M53.3 Sacrococcygeal disorders, not elsewhere classified
CPT/HCPCS: 27096; 72200; J1010; Q9967

== ENCOUNTER → 2025-04-13 00:27 | Outpatient (CLI) | payer MEDICARE, SELFPAY ==
--- NOTE | 2025-04-13 07:15 | DI.RAD_ITS ---
Exam(s) RF JOINT INJ. FLUORO GUID RAD EXAM: RF JOINT INJ. FLUORO GUID RAD CLINICAL HISTORY: R SHOULDER PAIN,FLUORO GUIDED INJECTION,ARTHRITIS RT SHOULDER. TECHNIQUE: 2D and realtime digital imaging was performed. CONTRAST MATERIAL: Oral barium Oral water soluble contrast was administered. COMPARISON: Prior x-rays reviewed FINDINGS: This fluoroscopic guided right shoulder steroid injection was performed at the request of the referring orthopedic surgeon. Patient was consented prior to this procedure. Patient was placed in the supine position on the fluoroscopy table. Using sterile technique and adequate skin-subcutaneous anesthesia, copy guidance was used to advance a 22 gauge spinal needle into the glenohumeral joint via an anterior approach. Intra-articular position was confirmed with injection of 1.5 cc Omnipaque 300. Thereafter a sterile solution of 40 milligram Depo-Medrol and 3 cc bupivacaine 0.25 percent was injected through the indwelling needle. Needle was removed. Band-Aid applied. Patient tolerated this procedure well and there were no intraprocedural complications. IMPRESSION: Successful right shoulder fluoroscopic guided steroid injection. RADIATION DOSE DELIVERED: Ka,r=1.48mGy
[2025-04-13] MEDS: methylPREDNISolone ACETATE 40 MG/ML VIAL IM (15:23)
[2025-04-13] MEDS: Omnipaque 300 MG/ML 10 ML BTL IJ (15:24)
[2025-04-13] MEDS: Bupivacaine 0.25% Pres-Free 10 ML VIAL IJ (15:24)
[2025-04-13] MEDS: Lidocaine 1% Pres-Free 30 ML VIAL IJ (15:25)
== END ==
LOC: DI 00:27
PROVIDERS: PCP Family Medicine; Visit Provider Student in an Organized Health Care Education/Training Program
DX: M19.011 Primary osteoarthritis, right shoulder (principal)
CPT/HCPCS: 20610; 77002; J0665; J1010